=== PATIENT | male | born 1945 | race Caucasian/White ===

== ENCOUNTER 2023-10-18 09:23 | Day surgery (SDC) | payer MEDICARE, OTHER ==
[~2023-10-18] VITALS: Ht 172.7 cm; Wt 88.9 kg
[~2023-10-18 09:23] MED LIST: ATOR40TA75 PO; ECOT81TA5 PO; NS 1,000 ML IV ONE; SILD100T PO; SYNT88TA2 PO; TAMS1CAP17 PO
[2023-10-18] MEDS ORDERED: propofoL 200 MG/20 ML VIAL As Ordered ONE (11:12)
[2023-10-18] MEDS ORDERED: LIDOCAINE 2% 100MG/5ML SDV (FOR ANES.) As Ordered ONE (11:12)
[2023-10-18 11:50] VITALS: BP 152/78; O2SAT 95
== END 2023-10-18 12:01 | disposition home or self-care (01) ==
LOC: M OPP 09:23
PROVIDERS: ATTEND Internal Medicine Gastroenterology
DX: Z12.11 Encounter for screening for malignant neoplasm of colon (principal); K64.0 First degree hemorrhoids; K57.30 Diverticulosis of large intestine without perforation or abscess without bleeding; E03.9 Hypothyroidism, unspecified; Z79.890 Hormone replacement therapy; Z79.82 Long term (current) use of aspirin; Z79.899 Other long term (current) drug therapy; Z88.2 Allergy status to sulfonamides